=== PATIENT | male | born 1960 | race Caucasian/White ===

== ENCOUNTER 2016-10-23 14:39 | Observation (INO) | payer MEDICARE, OTHER ==
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
--- NOTE | ~2016-10-23 | EE ---
Unit #: [id number] #: [id number] Patient: ROSELINE YEAGER [id number] [address] [address] [id number] I MR#: [id number] NAME: ROSELINE YEAGER. : 1960 SEX: M STUDY DATE/TIME: 10/24/2016 UNIT: [facility] ROOM: 573 STUDY DESCRIPTION: EEG Attending Physician: Tim Jaime M.D. Referring Physician: Shaquille Velásquez M.D. NEURODIAGNOSTICS REPORT EXAM EEG. REASON FOR THE STUDY Seizures. EEG DESCRIPTION This is an inpatient, digitally recorded, multi montage adult EEG with leads placed according to the International 10/20 System. Hyperventilation and photic stimulation were attempted. With the patient fully aroused, there is 9 Hertz posterior dominant alpha rhythm which is symmetric and attenuates with eyes opening. The patient did become drowsy and later on stage II sleep was seen. Nothing suggesting clearcut interictal discharges or clinical events. Hyperventilation was attempted but I did not see any changes. Photic stimulation was attempted in intermittent stepwise pattern up to the flash frequency of 30 hertz, but I did not see any driving, asymmetry, or paroxysmal activity. IMPRESSION This is an essentially normal adult awake and asleep EEG. An EEG like this does not rule out epilepsy. Clinical correlation is recommended. Dictated by... Allan Castellanos TD: 10/26/2016 21:17 JOB #: [id number] NEURODIAGNOSTICS REPORT X Shaquille Velásquez MD NEURODIAGNOSTICS REPORT
--- NOTE | ~2016-10-23 | CR72 ---
[facility] A Service of [facility] & [facility] RADIOLOGY TEXT RESULTS PATIENT: ROSELINE YEAGER LOCATION: [facility] 573-01 : [birth year] UNIT #: [id number] AGE: [address]: ARNOL JAIME MD SEX: M ORDER DR: [id number] [facility] [address] [facility]. [place], [place] [address] [id number] I MR#: [id number] Acc #: [id number] NAME: ROSELINE YEAGER. : 1960 SEX: M STUDY DATE/TIME: 10/23/2016 14:33 UNIT: [facility] ROOM: [facility] STUDY DESCRIPTION: CR Chest Single View Portable Attending Physician: Arnol Jaime M.D. Ordering Physician: David Lau M.D. Primary Care Physician: Primary Care Physician No MEDICAL IMAGING REPORT This report is preliminary unless electronic signature is present EXAM Frontal chest, 10/23/2016 INDICATIONS Chest pain in a 56-year-old male, seizures today, hypertension. TECHNIQUE Frontal chest compared with 09/04/2016. FINDINGS Postop changes of median sternotomy are present, cardiac silhouette is within normal limits. The vascularity is normal and the lungs are clear. There are chronic-appearing rib fractures on the right. No pneumothorax. No effusion. IMPRESSION 1. Negative frontal chest. Postop changes. Chronic-appearing rib fractures on the right. Dictated by... Dinesh Reyes M.D. THIS IS AN ELECTRONICALLY VERIFIED REPORT Dinesh Reyes M.D. at 10/24/2016 7:39 AM BRENDA/lilly TD: 10/23/2016 22:12 JOB #: [id number] MEDICAL IMAGING REPORT COPY
--- NOTE | ~2016-10-23 | DS ---
Unit #: [id number] #: [id number] Patient: ROSELINE YEAGER [id number] [address] [place], [place] [address] [id number] I MR#: [id number] NAME: ROSELINE YEAGER. ROOM: 573 Age: 56 Sex: M Admission Date: 10/23/2016 : 1960 Discharge Date: 10/25/2016 Attending Physician: Tim Jaime M.D. DISCHARGE SUMMARY This is Dr. Jaime dictating discharge summary. DISCHARGE DIAGNOSES 1. Recurrent falls. 2. Recurrent seizures. 3. Marijuana abuse. 4. Hypertension. 5. Hyponatremia. HOSPITAL COURSE The patient is a 56-year-old male with a history of polysubstance abuse and hypertension and coronary artery disease, status post CABG, presented to the emergency room with recurrent seizures. See the H and P for the detailed H and P. The patient was seen by the Neurology for the recurrent seizures and concerning for possible breakthrough seizures. I recommended the MRI and EEG. The patient had MRI of the brain that showed volume loss greater than expected for age, but otherwise unremarkable expect for right maxillary sinusitis. There is some slight periventricular white matter T2 change, but brain parenchymal signals otherwise normal. There is no hemorrhage and EEG is negative. The patient shows improvement and neurologist has changed the medication from Keppra to Vimpat for better control of the breakthrough seizures. The patient is cleared for discharge from the Neurology. The patient also had seen by the Cardiology and recommended echocardiogram and echo is done, and the report is pending. PHYSICAL EXAMINATION GENERAL: On examination, the patient is walking in a room and waiting for ready to be discharged. VITAL SIGNS: Temperature 97.8, pulse 75, respirations 18, and blood pressure 138/92. HEAD: Atraumatic, normocephalic. EENT: Pupils are equal, round, and reactive to light and accommodation. Extraocular movements are intact. NECK: Supple. No JVD. LUNGS: Clear to auscultation bilaterally. No rhonchi. No wheezing. HEART: Regular rate and rhythm. ABDOMEN: Soft. Positive bowel sounds. EXTREMITIES: No cyanosis. No clubbing. NEUROLOGIC: Alert, awake, oriented. No gross focal motor deficit. DIAGNOSTIC STUDIES LABORATORY RESULTS: From today, glucose 85, BUN 18, creatinine 0.7, sodium 140, potassium 4.2, chloride 104, bicarb 27, calcium 9.5, total Unit #: [id number] #: [id number] Patient: ROSELINE YEAGER protein 6.8, direct total bilirubin 0.9, indirect bilirubin 2, AST 72, ALT 77, alkaline phosphatase 91. WBC 4.2, hemoglobin 12, hematocrit 36.1, platelet 129. Urine drug screen is positive for marijuana. DISCHARGE MEDICATIONS The patient is discharged home on acetaminophen, magnesium oxide, Lexapro, trazodone, Coreg, Lipitor, lisinopril, multivitamin, aspirin, naproxen, thiamine, Vimpat 100 mg p.o. b.i.d. and the patient is recommended to follow up with Dr. Hargrove, the neurologist in 1 to 2 weeks and abstain from the drug abuse and the patient is discharged home in a stable condition. Dictated by... Allan Basurto TD: 10/27/2016 03:09 JOB #: [id number] DISCHARGE SUMMARY X X DISCHARGE SUMMARY
--- NOTE | ~2016-10-23 | EKG ---
PATIENT: ROSELINE YEAGER UNIT #: [id number] Ventricular Rate: 72 BPM Atrial Rate: 72 BPM P-R Interval: 122 ms QRS Duration: 94 ms Q-T Interval: 390 ms QTC Calculation(Bezet): 427 ms P Scott: 73 degrees Calculated R Scott: 72 degrees Calculated T Scott: 79 degrees Diagnosis Line: Normal sinus rhythm Diagnosis Line: Normal ECG Diagnosis Line: When compared with ECG of 06-AUG-2016 09:44, Diagnosis Line: No significant change was found Diagnosis Line: Confirmed by JOSSELINE COOL MD ([id number]) on Diagnosis Line: 10/24/2016 12:08:57 AM INTERPRETING MD: SILVINA WAGONER
--- NOTE | ~2016-10-23 | EKG ---
PATIENT: ROSELINE YEAGER UNIT #: [id number] Ventricular Rate: 82 BPM Atrial Rate: 82 BPM P-R Interval: 136 ms QRS Duration: 102 ms Q-T Interval: 354 ms QTC Calculation(Bezet): 413 ms P Hazelton: 66 degrees Calculated R [place]: 74 degrees Calculated T Hazel[place]: 74 degrees Diagnosis Line: Normal sinus rhythm Diagnosis Line: Normal ECG Diagnosis Line: When compared with ECG of 23-OCT-2016 14:22, Diagnosis Line: No significant change was found Diagnosis Line: Confirmed by JOSSELINE COOL MD ([id number]) on Diagnosis Line: 10/26/2016 11:23:12 AM INTERPRETING MD: SILVINA WAGONER
--- NOTE | ~2016-10-23 | MR17 ---
[facility] A Service of [facility] RADIOLOGY TEXT RESULTS PATIENT: ROSELINE YEAGER LOCATION: [facility] 573-01 : [birth year] UNIT #: [id number] AGE: [address]: ARNOL JAIME MD SEX: M ORDER DR: [id number] [facility] [address] [facility]. [place], [place] [address] [id number] I MR#: [id number] Acc #: [id number] NAME: ROSELINE YEAGER. : 1960 SEX: M STUDY DATE/TIME: 10/24/2016 23:06 UNIT: [facility] ROOM: [facility] STUDY DESCRIPTION: MR Brain WWo Contrast Attending Physician: Arnol Jaime M.D. Ordering Physician: Shaquille Velásquez M.D. Primary Care Physician: Primary Care Physician No MRI CENTER REPORT This report is preliminary unless electronic signature is present. EXAM Brain MRI with and without contrast 10/24/2016 PROCEDURE Routine brain MR with and without contrast with additional seizure protocol imaging. COMPARISON Head CT and head and neck CTA 08/06/2016. HISTORY Episodes of either syncope or seizures for the past year. FINDINGS There is no MR evidence of acute ischemia. There is no hydrocephalus, hemorrhage, or extraaxial fluid collection. The brain is structurally normal. Normal flow voids are seen in the cerebral vessels. Postcontrast images show no mass or abnormal enhancement. There is right maxillary sinus mucosal disease including an air-fluid level, but the skull base and calvarium are otherwise unremarkable except for a tiny amount of fluid in the inferior most mastoid air cells. No potential seizure focus is identified. The hippocampal formations are symmetric. IMPRESSION 1. Volume loss greater than expected for age but otherwise unremarkable except for right maxillary sinusitis. There is some slight periventricular white matter T2 change but brain parenchymal signal is otherwise normal. There is no hemorrhage, mass, abnormal enhancement or restricted diffusion. 2. Right maxillary sinus air-fluid level suggesting sinusitis. [facility] A Service of [facility] RADIOLOGY TEXT RESULTS PATIENT: ROSELINE YEAGER LOCATION: [facility] 573-01 : [birth year] UNIT #: [id number] AGE: [address]: ARNOL JAIME MD SEX: M ORDER DR: Dictated by... Rasheed Garcia M.D. THIS IS AN ELECTRONICALLY VERIFIED REPORT Rasheed Garcia M.D. at 10/27/2016 3:46 PM COREEN/aguilar TD: 10/25/2016 13:02 JOB #: [id number] MRI CENTER REPORT COPY
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
[~2016-10-23 14:39] MED LIST: ADVIL200 M1 PO; B-COMPLEX-VITA1 EACH; CARAFATE1 G PO; CLONIDINE PO; COREG12.5 M1; DESYREL300 MG; HYDROCODON-ACE1 EAC7 PO; LEXAPRO; LIPITOR80 MG; LISINOPRIL10 MG; LISINOPRIL20 MG PO; LOW DOSE ASPIRI81 M1; MAGNESIUM-VIT1 EACH; PRILOSEC20 MG PO; SEROQUEL PO; SPRITAM250 MG; TYLENOL #3 PO
[2016-10-23 14:50] LABS: BASOPHIL% 0.3 % (0-2.5); EOSINOPHIL% 0.3 % (0.0-7.0); HEMATOCRIT 37.7 % (38.0-50.0); HEMOGLOBIN 12.8 gm/dL (13.0-16.0); LYMPHOCYTE# 0.5 X10e3 (1.0-3.5); LYMPHOCYTE% 10.6 % (17.0-45.0); MEAN CELL VOLUME 90.8 FL (83-96); MEAN CORPUSCULAR HEMOGLOBIN 30.8 PG (28-34); MEAN CORPUSCULAR HGB CONC 33.9 g/dL (30-36); MEAN PLATELET VOLUME 7.5 FL (6.5-11.5); MONOCYTE# 0.5 X10e3 (0-1.0); MONOCYTE% 11.9 % (3.0-12.0); NEUTROPHIL# 3.5 X10e3 (1.5-7.1); NEUTROPHIL% 76.9 % (40-75); PLATELET COUNT 162 X10e3 (140-420); RED BLOOD COUNT 4.15 X10e (3.90-5.60); RED CELL DISTRIBUTION WIDTH 16.7 % (11.0-15.5); WHITE BLOOD COUNT 4.5 X10e3 (4.0-10.5)
[2016-10-23 14:53] LABS: DIFF IND NO
[2016-10-23 14:56] LABS: POC - CKMB 13.6 ng/mL (0.0-7.9); POC - TROPONIN <0.05 ng/mL (<=0.05)
[2016-10-23] MEDS ORDERED: LEVETIRACETAM500 MG PO (15:00)
[2016-10-23] MEDS ORDERED: LIPITOR PO (15:00)
[2016-10-23] MEDS ORDERED: ASPIRIN81 M2 PO (15:01)
[2016-10-23] MEDS ORDERED: NAPROXEN PO (15:01)
[2016-10-23] MEDS ORDERED: MAG-OX 400400 M1 PO (15:01)
[2016-10-23] MEDS ORDERED: MULTI VITAMIN1 EACH PO (15:02)
[2016-10-23] MEDS ORDERED: TRAZODONE HCL100 MG PO (15:02)
[2016-10-23] MEDS ORDERED: VITAMIN B-1100 M1 PO (15:02)
[2016-10-23 15:03] LABS: INR 0.9; PROTHROMBIN TIME (PATIENT) 9.5 SECONDS (9.6-11.5)
[2016-10-23] MEDS ORDERED: CARVEDILOL25 MG PO (15:03)
[2016-10-23] MEDS ORDERED: ESCITALOPRAM OX10 MG PO (15:04)
[2016-10-23] MEDS ORDERED: LISINOPRIL10 MG PO (15:04)
[2016-10-23 15:27] LABS: AMPHETAMINE NEG (NEG); BARBITURATES NEG (NEG); BENZODIAZEPINES NEG (NEG); COCAINE NEG (NEG); MARIJUANA POS (NEG); OPIATES NEG (NEG); TRICYCLIC ANTIDEPRESSANTS NEG (NEG); U METHADONE NEG (NEG)
[2016-10-23 15:29] LABS: ALBUMIN SERUM 4.7 g/dL (3.5-5.0); ALKALINE PHOSPHATASE 120 U/L (32-92); ALT (SGPT) 94 U/L (10-40); AST (SGOT) 107 U/L (10-42); BILIRUBIN, DIRECT 0.2 mg/dL (0.0-0.2); BILIRUBIN,TOTAL 2.2 mg/dL (0.2-2.0); BLOOD UREA NITROGEN 23 mg/dL (9-23); CALCIUM SERUM 9.9 mg/dL (8.4-10.2); CARBON DIOXIDE 27 mmol/L (22-31); CHLORIDE 90 mmol/L (100-111); CREATININE SERUM 1.1 mg/dL (0.6-1.4); GLOM FILT RATE Estimated ABOVE60 mL/min (>60); GLUCOSE FASTING 96 mg/dL (70-110); POTASSIUM 4.4 mmol/L (3.5-5.1); PROTEIN TOTAL SERUM 7.7 g/dL (6.0-8.3); SODIUM 130 mmol/L (135-145)
[2016-10-23 15:30] LABS: ALCOHOL BLOOD <5 mg/dL (0)
[2016-10-23 16:33] LABS: POC - TROPONIN <0.05 ng/mL (<=0.05)
[2016-10-23 20:55] LABS: %MB 2.2 % (0.0-4.0); MB 9.2 ng/ml
[2016-10-24 03:14] LABS: BASOPHIL% 0.6 % (0-2.5); DIFF IND NO; EOSINOPHIL% 0.6 % (0.0-7.0); HEMATOCRIT 36.5 % (38.0-50.0); HEMOGLOBIN 12.1 gm/dL (13.0-16.0); LYMPHOCYTE# 1.1 X10e3 (1.0-3.5); LYMPHOCYTE% 29.9 % (17.0-45.0); MEAN CELL VOLUME 92.5 FL (83-96); MEAN CORPUSCULAR HEMOGLOBIN 30.6 PG (28-34); MEAN CORPUSCULAR HGB CONC 33.1 g/dL (30-36); MEAN PLATELET VOLUME 7.9 FL (6.5-11.5); MONOCYTE# 0.5 X10e3 (0-1.0); MONOCYTE% 13.2 % (3.0-12.0); NEUTROPHIL% 55.7 % (40-75); PLATELET COUNT 129 X10e3 (140-420); RED BLOOD COUNT 3.94 X10e (3.90-5.60); WHITE BLOOD COUNT 3.6 X10e3 (4.0-10.5)
[2016-10-24 03:43] LABS: BLOOD UREA NITROGEN 24 mg/dL (9-23); CALCIUM SERUM 8.9 mg/dL (8.4-10.2); CARBON DIOXIDE 29 mmol/L (22-31); CHLORIDE 101 mmol/L (100-111); CREATININE SERUM 0.8 mg/dL (0.6-1.4); GLOM FILT RATE Estimated ABOVE60 mL/min (>60); GLUCOSE FASTING 119 mg/dL (70-110); SODIUM 134 mmol/L (135-145)
[2016-10-24 03:59] LABS: %MB 2.1 % (0.0-4.0); MB 6.8 ng/ml
[2016-10-24 18:06] LABS: FOLATE (FOLIC ACID) >23.6 ng/mL (>5.8)
[2016-10-25 06:34] LABS: HEMATOCRIT 37.1 % (38.0-50.0); MEAN CELL VOLUME 93.9 FL (83-96); MEAN CORPUSCULAR HEMOGLOBIN 30.4 PG (28-34); MEAN CORPUSCULAR HGB CONC 32.3 g/dL (30-36); MEAN PLATELET VOLUME 8.4 FL (6.5-11.5); RED BLOOD COUNT 3.96 X10e (3.90-5.60); RED CELL DISTRIBUTION WIDTH 17.1 % (11.0-15.5); WHITE BLOOD COUNT 4.2 X10e3 (4.0-10.5)
[2016-10-25 07:26] LABS: ALKALINE PHOSPHATASE 91 U/L (32-92); ALT (SGPT) 77 U/L (10-40); AST (SGOT) 72 U/L (10-42); BILIRUBIN, DIRECT 0.2 mg/dL (0.0-0.2); BILIRUBIN,TOTAL 0.9 mg/dL (0.2-2.0); BLOOD UREA NITROGEN 18 mg/dL (9-23); BUN/CREATININE RATIO 25.71; CALCIUM SERUM 9.5 mg/dL (8.4-10.2); CARBON DIOXIDE 27 mmol/L (22-31); CHLORIDE 104 mmol/L (100-111); CREATININE SERUM 0.7 mg/dL (0.6-1.4); GLOM FILT RATE Estimated ABOVE60 mL/min (>60); GLUCOSE FASTING 85 mg/dL (70-110); POTASSIUM 4.2 mmol/L (3.5-5.1); PROTEIN TOTAL SERUM 6.8 g/dL (6.0-8.3); SODIUM 140 mmol/L (135-145)
[2016-10-25 12:13] LABS: CHOLESTEROL 209 mg/dL (0-200); HDL CHOLESTEROL 94 mg/dL (29-75); LDL CHOLESTEROL 85 mg/dL (-130); LDL/HDL RATIO 1 RATIO (0-4); TRIGLYCERIDES 150 mg/dL (10-160)
[2016-10-25] MEDS ORDERED: TYL325 PO (13:45)
[2016-10-25] MEDS ORDERED: VIMPAT100 MG PO (13:46)
[2016-10-26 08:17] LABS: HA AB IGM (HEPPAN) Nonreactive (Nonreactive); HB CORE AB IGM (HEPPAN) Nonreactive (Nonreactive); HB S AG (HEPPAN) Nonreactive (Nonreactive); HEP C AB (HEPPAN) Nonreactive (Nonreactive); HEP C AB SIGNAL TO CUTOFF 0.01 ratio (<1.00)
== END 2016-10-25 14:11 | disposition home or self-care (01) ==
LOC: CED 14:39 → CEDOF 16:00 → C5C 21:17
PROVIDERS: Emergency Medicine; Internal Medicine; Psychiatry & Neurology Neurology
DX: G40.909 Epilepsy, unspecified, not intractable, without status epilepticus (principal); R29.6 Repeated falls; F12.10 Cannabis abuse, uncomplicated; I10 Essential (primary) hypertension; E87.1 Hypo-osmolality and hyponatremia; I25.10 Atherosclerotic heart disease of native coronary artery without angina pectoris; Z95.1 Presence of aortocoronary bypass graft; J32.0 Chronic maxillary sinusitis; F17.210 Nicotine dependence, cigarettes, uncomplicated; Z88.5 Allergy status to narcotic agent
CPT/HCPCS: 36415; 70553; 71010; 80048; 80053; 80061; 80074; 80076; 80299; 80307; 82248; 82550; 82553; 82607; 82746; 82947; 84484; 85025; 85027; 85610; 93005; 93306; 95816; 96372; 99285; A9577; G0378; G0480; J1650